=== PATIENT | female | born 1965 | race Caucasian/White ===

== ENCOUNTER 2016-08-19 08:44 | Emergency (ER) | payer BC ==
[~2016-08-19] VITALS: Ht 157.5 cm; Wt 66.3 kg
[2016-08-19 08:46] VITALS: TEMP 36.3; Ht 157.5 cm; Wt 66.3 kg
[2016-08-19] MEDS ORDERED: ONDANSETRON INJ 2 MG/ML 2 ML VIAL IV STA (08:57)
[2016-08-19] MEDS ORDERED: SODIUM CHLORIDE 0.9% 1000ML 1,000 ML IV ONE (09:00)
[2016-08-19] MEDS ORDERED: ACETAMINOPHEN IV 100 ML IV ONE (09:00)
[2016-08-19 09:10] LABS: BASO % 0.2 %; BASO ABS # 0.02 K/uL (0-0.2); COMPLETE YES; HEMATOCRIT 39.3 % (37-47); IG% 0.4 %; LYMPH % 17.6 %; LYMPH ABS # 1.95 K/uL (1.2-3.4); MEAN CELL VOLUME 89.9 fL (80-100); MEAN CORPUSCULAR HEMOGLOBIN 30.7 pg (25-34); MEAN CORPUSCULAR HGB CONC 34.1 g/dl (32-36); MEAN PLATELET VOLUME 10.5 fL (7.4-10.4); MONO % 6.2 %; NEUT % 75.6 %; PLATELET COUNT 310 K/uL (130-400); RED BLOOD COUNT 4.37 M/uL (4.2-5.4); WHITE BLOOD COUNT 11.05 K/uL (4.8-10.8)
[2016-08-19] MEDS: MoRPHine SULFATE 4 MG/ML 1 ML CARP\\VIAL IV PRN ×2 (09:13→10:40)
[2016-08-19] MEDS ORDERED: MULT-506 PO (09:16)
[2016-08-19 09:31] LABS: BUN/CREATININE RATIO 19.6 (10-20); CALCIUM 9.3 mg/dl (8.5-10.1); CREATININE 0.85 mg/dl (0.60-1.20); POTASSIUM 3.9 mmol/L (3.5-5.1)
[2016-08-19 09:33] LABS: ALB/GLOB RATIO 1.1 (0.9-2)
--- NOTE | 2016-08-19 09:51 | DIAGNOSTIC IMAGING REPORT ---
ABDOMEN AND PELVIS CT WITHOUT CONTRAST CT DOSE: 868.81 mGycm HISTORY: Flank pain Right side flank pain TECHNIQUE: Multiaxial CT images of the abdomen and pelvis were performed without the use of intravenous and oral contrast according to the standard department stone protocol. COMPARISON STUDY: None. FINDINGS: Lung bases are clear. Liver spleen and pancreas are unremarkable. Left kidney shows several punctate nonobstructing calcifications. Right kidney shows a 6.5 mm nonobstructing calcification at its mid pole. There is mild right hydroureteronephrosis with evidence for a 3 mm obstructing calculus of the mid right ureter. Bowel pattern is nonobstructive. There are scattered colonic diverticuli with no evidence for diverticulitis. The uterus is bulky in appearance probably representing fibroid involvement. IMPRESSION: 1. 3 mm obstructing calculus mid right ureter. 2. Several additional nonobstructing bilateral renal calcifications. 3. Nonobstructive bowel pattern. 4. Normal appendix. Electronically signed by: Malvin Gomez M.D. 08/19/2016 9:50 AM Dictated Date/Time: 08/19/2016 9:31 AM
[2016-08-19] MEDS ORDERED: OXYC1TAB3 PO (10:25)
[2016-08-19] MEDS ORDERED: TAMS0.4C38 PO (10:25)
[2016-08-19] MEDS ORDERED: ONDA4TAB10 SL (10:25)
[2016-08-19 10:41] VITALS: BP 103/72; PULSE 72; O2SAT 99
--- NOTE | 2016-08-19 10:43 | EMERGENCY ROOM VISIT NOTE ---
History First contact with patient: 08:50 Chief Complaint: FLANK PAIN Stated Complaint: SEVERE BACK PAIN, VOMITING History of Present Illness The patient is a 51 year old female who presents to the Emergency Room with complaints of right-sided back pain that has been significant worsening over the past 12 hours. The patient states that she felt a dull ache in her right side back when she awoke yesterday. The patient was able to go to work and did not have significant difficulty. She states that last night her pain started to increase in severity, and this morning she now rates it a 9/10. She does have episodes of colicky pain, and with one of these episodes she did have emesis. The patient has not had fever or chills. No chest pain or shortness of breath. Her pain does radiate to her abdomen now. The patient does not have injury or trauma to explain her symptoms. No increase in activity. She considers herself otherwise usually healthy and has not taken anything at home for her symptoms. Review of Systems More than 10 systems were reviewed and otherwise negative with the exception of history of present illness. Past Medical/Surgical History No chronic medical disease Family History No pertinent family history Social History Smoking Status: Never Smoker Housing Status: lives with family Occupation Status: employed Current/Historical Medications Scheduled Multivitamin (Multivitamin), 1 TAB PO DAILY Ondasetron Odt (Zofran Odt), 4 MG SL Q6H Oxycodone Immediate Rel Tab (Roxicodone Ir), 1-2 TAB PO Q4H Tamsulosin Hcl (Flomax), 0.4 MG PO DAILY Allergies Coded Allergies: Penicillins (Verified Allergy, Intermediate, 08/19/16) ALLERGY IS RASH Physical Exam Vital Signs Date Time Temp Pulse Resp B/P Pulse Ox O2 Delivery O2 Flow Rate FiO2 08/19/16 09:36 64 16 114/79 95 Room Air 08/19/16 08:46 36.3 66 20 128/80 100 Room Air Pain Rating (0-10): 2.0 Physical Exam VITALS: Vitals are noted on the nurse's note and reviewed by myself. Vital signs stable. GENERAL: Well-developed, well-nourished, white female who appears in moderate to severe discomfort secondary to her stated complaint. She is very uncomfortable in her emergency department bed. HEAD: Normocephalic atraumatic. NECK: Supple without nuchal rigidity. No lymphadenopathy. No thyromegaly. Cervical spine is nontender. HEART: Regular rate and rhythm without murmurs gallops or rubs. LUNGS: Clear to auscultation bilaterally without wheezes, rales or rhonchi. No retractions or accessory muscle use. ABDOMEN: Positive normal bowel sounds x 4. Soft, nontender, without masses or organomegaly. No guarding or rebound tenderness. No CVA tenderness. MUSCULOSKELETAL: No muscle atrophy, erythema, or edema noted. Full range of motion without joint tenderness in all extremities. No reproducible tenderness throughout the spine. Medical Decision & Procedures ER Provider Diagnostic Interpretation: ABDOMEN AND PELVIS CT WITHOUT CONTRAST CT DOSE: 868.81 mGycm HISTORY: Flank pain Right side flank pain TECHNIQUE: Multiaxial CT images of the abdomen and pelvis were performed without the use of intravenous and oral contrast according to the standard department stone protocol. COMPARISON STUDY: None. FINDINGS: Lung bases are clear. Liver spleen and pancreas are unremarkable. Left kidney shows several punctate nonobstructing calcifications. Right kidney shows a 6.5 mm nonobstructing calcification at its mid pole. There is mild right hydroureteronephrosis with evidence for a 3 mm obstructing calculus of the mid right ureter. Bowel pattern is nonobstructive. There are scattered colonic diverticuli with no evidence for diverticulitis. The uterus is bulky in appearance probably representing fibroid involvement. IMPRESSION: 1. 3 mm obstructing calculus mid right ureter. 2. Several additional nonobstructing bilateral renal calcifications. 3. Nonobstructive bowel pattern. 4. Normal appendix. Laboratory Results 08/19/16 09:00 Red Blood Count 4.37, Mean Corpuscular Volume 89.9, Mean Corpuscular Hemoglobin 30.7, Mean Corpuscular Hemoglobin Concent 34.1, Mean Platelet Volume 10.5, Neutrophils (%) (Auto) 75.6, Lymphocytes (%) (Auto) 17.6, Monocytes (%) (Auto) 6.2, Eosinophils (%) (Auto) 0.0, Basophils (%) (Auto) 0.2, Neutrophils # (Auto) 8.35, Lymphocytes # (Auto) 1.95, Monocytes # (Auto) 0.69, Eosinophils # (Auto) 0.00, Basophils # (Auto) 0.02 08/19/16 09:00 Test 08/19/16 09:00 White Blood Count 11.05 K/uL (4.8-10.8) Red Blood Count 4.37 M/uL (4.2-5.4) Hemoglobin 13.4 g/dL (12.0-16.0) Hematocrit 39.3 % (37-47) Mean Corpuscular Volume 89.9 fL (80-100) Mean Corpuscular Hemoglobin 30.7 pg (25-34) Mean Corpuscular Hemoglobin Concent 34.1 g/dl (32-36) Platelet Count 310 K/uL (130-400) Mean Platelet Volume 10.5 fL (7.4-10.4) Neutrophils (%) (Auto) 75.6 % Lymphocytes (%) (Auto) 17.6 % Monocytes (%) (Auto) 6.2 % Eosinophils (%) (Auto) 0.0 % Basophils (%) (Auto) 0.2 % Neutrophils # (Auto) 8.35 K/uL (1.4-6.5) Lymphocytes # (Auto) 1.95 K/uL (1.2-3.4) Monocytes # (Auto) 0.69 K/uL (0.11-0.59) Eosinophils # (Auto) 0.00 K/uL (0-0.5) Basophils # (Auto) 0.02 K/uL (0-0.2) RDW Standard Deviation 43.3 fL (36.4-46.3) RDW Coefficient of Variation 13.1 % (11.5-14.5) Immature Granulocyte % (Auto) 0.4 % Immature Granulocyte # (Auto) 0.04 K/uL (0.00-0.02) Anion Gap 9.0 mmol/L (3-11) Est Creatinine Clear Calc Drug Dose 71.5 ml/min Estimated GFR () 93.3 Estimated GFR (Non- 80.5 BUN/Creatinine Ratio 19.6 (10-20) Calcium Level 9.3 mg/dl (8.5-10.1) Total Bilirubin 0.6 mg/dl (0.2-1) Aspartate Amino Transf (AST/SGOT) 20 U/L (15-37) Alanine Aminotransferase (ALT/SGPT) 20 U/L (12-78) Alkaline Phosphatase 96 U/L (45-117) Total Protein 7.5 gm/dl (6.4-8.2) Albumin 3.9 gm/dl (3.4-5.0) Globulin 3.6 gm/dl (2.5-4.0) Albumin/Globulin Ratio 1.1 (0.9-2) Lipase 157 U/L (73-393) Medications Administered Medications (Trade) Dose Ordered Sig/Gwendolyn Route Start Time Stop Time Status Last Admin Dose Admin Sodium Chloride (Nss 1000ml) 1,000 ml @ 999 mls/hr Q1H1M ONCE IV 08/19/16 09:00 08/19/16 10:00 DC 08/19/16 09:13 999 MLS/HR Morphine Sulfate (MoRPHine SULFATE INJ) 4 mg Q30M PRN IV 08/19/16 09:00 09/02/16 08:59 08/19/16 09:13 4 MG Ondansetron HCl 4 mg 4 mg NOW STAT IV 08/19/16 08:57 08/19/16 08:59 DC 08/19/16 09:13 4 MG Acetaminophen (Ofirmev Iv) 100 ml @ 400 mls/hr NOW ONCE IV 08/19/16 09:00 08/19/16 09:14 DC 08/19/16 09:13 400 MLS/HR ED Course Physical exam and history were performed. Nursing notes and EMR were reviewed. Patient appears to have right sided back pain radiating into her groin. Clinically she appears quite uncomfortable on exam. IV access was established and labs were obtained. The patient was hydrated with normal saline given IV morphine and IV Zofran for comfort. Out of concern for stone or other abdominal process as did elect from CT scan. The patient blood work is as above and was reviewed. She has a very minimally elevated white blood cell count of 11,000. She does not have significant anemia or gross electrolyte imbalance. Lipase and transaminases are nondiagnostic. CT scan does show a 3 mm mid ureteral calculi consistent with the patient's discomfort. I reevaluated the patient several times throughout her stay. After hydration, pain medication, and antiemetics she was much more comfortable and was able to rest in her ER bed. Overall the patient appears stable for discharge home. She will be given a urine strainer as well as home medications of oxycodone, Zofran, and Flomax. I will give her a note for several days off work and information to follow with urology. The patient was thoroughly asked to return if she had worsening symptoms or did not do well at home. The patient was pleased with this and voiced understanding. She was discharged home under the care of her and rated her discomfort a 2/10 at the time of departure. The chart was completed utilizing [employer] Speech Voice Recognition Software. Grammatical errors, random word insertions, pronoun errors, and incomplete sentences are an occasional consequence of this system due to software limitations, ambient noise, and hardware issues. Any formal questions or concerns about the content, text, or information contained within the body of this dictation should be directly addressed to the provider for clarification. . Medical Decision Differential diagnosis: Etiologies such as renal colic, appendicitis, diverticulitis, mesenteric ischemia, aortic pathology, infections, inflammatory bowel disease, PUD, biliary pathology, UTI, as well as others were entertained. Impression Primary Impression: Right ureteral calculus Departure Information Dispostion Home / Self-Care Condition GOOD Prescriptions Ondasetron Odt (ZOFRAN ODT) 4 Mg Tab 4 MG SL Q6H for Nausea, #12 TAB Prov: Eddie Johns PA-C 08/19/16 Tamsulosin Hcl (FLOMAX) 0.4 Mg Cap 0.4 MG PO DAILY for 7 Days, #7 CAP Prov: Eddie Johns PA-C 08/19/16 Oxycodone Immediate Rel Tab (ROXICODONE IR) 5 Mg Tab 1-2 TAB PO Q4H for Pain, #30 TAB Prov: Eddie Johns PA-C 08/19/16 Referrals Jonathan Rosales M.D. Forms HOME CARE DOCUMENTATION FORM, Work Instructions, Additional Instructions: Patient was seen and evaluated today in the emergency department fo medical care. Return to work on 08/23/2016. Please excuse. IMPORTANT VISIT INFORMATION Patient Instructions Kidney Stones - [facility], [facility] Additional Instructions You were seen and evaluated today on an emergency basis only. This is not a substitute for, or an effort to provide, complete comprehensive medical care. It is not possible to recognize and treat all injuries or illnesses in a single emergency department visit. For this reason it is recommended that you followup with Urology, Dr. Rosales's office, by telephone today to make a follow-up appointment this week. Let them know you were seen in the emergency department to help facilitate care. For baseline pain relief you may alternate ibuprofen and acetaminophen every 4 hours for pain control. Take 600 mg ibuprofen (Advil) and then 4 hours later take 1000 mg acetaminophen (Tylenol). Do not take more than 3000 mg acetaminophen in a single day. Oxycodone (OxyIR) 5mg: Take ONE or TWO pills every FOUR to SIX hours for breakthrough pain. Avoid alcohol, operating machinery or dangerous equipment, working on ladders or roofs, DRIVING, or situations where being under the influence may be dangerous. It is recommended to use an [id number] stool softener such as Colace, 100mg twice daily while taking this medication to avoid constipation. Zofran 1 tablet every 6 hrs as needed for nausea. Take Flomax once daily Strain your urine. Drink plenty of fluids and remain well hydrated. You are welcome to return to the emergency department anytime with new, worsening, or concerning symptoms. Work Instructions Additional Work Instructions: Patient was seen and evaluated today in the emergency department for medical care. Return to work on 08/23/2016. Please excuse.
== END 2016-08-19 11:38 | disposition home or self-care (01) ==
LOC: C.EDB 08:45 → C.EDA 11:38
DX: N20.1 Calculus of ureter (principal); Z88.0 Allergy status to penicillin

== ENCOUNTER 2016-08-20 14:07 | Emergency (ER) | payer BC ==
[~2016-08-20] VITALS: Ht 157.5 cm; Wt 66.6 kg
[~2016-08-20 14:07] MED LIST: MULT-506 PO; ONDA4TAB10 SL; OXYC1TAB3 PO; TAMS0.4C38 PO
[2016-08-20 14:13] VITALS: TEMP 36.9; Ht 157.5 cm; Wt 66.6 kg
[2016-08-20] MEDS ORDERED: ONDANSETRON INJ 2 MG/ML 2 ML VIAL IV STA ×2 (14:31→18:07)
[2016-08-20] MEDS ORDERED: SODIUM CHLORIDE 0.9% 500ML 500 ML IV STA (14:31)
[2016-08-20] MEDS ORDERED: KETOROLAC TROMETHAMINE 30 MG/ML VIAL IV STA (14:31)
[2016-08-20] MEDS ORDERED: HYDROmorphone INJ 1 MG/ML SYR IV STA (14:31)
[2016-08-20 16:16] LABS: BASO % 0.1 %; BASO ABS # 0.01 K/uL (0-0.2); COMPLETE YES; HEMATOCRIT 35.2 % (37-47); IG% 0.2 %; LYMPH % 4.7 %; MEAN CELL VOLUME 89.8 fL (80-100); MEAN CORPUSCULAR HEMOGLOBIN 30.4 pg (25-34); MEAN CORPUSCULAR HGB CONC 33.8 g/dl (32-36); MEAN PLATELET VOLUME 10.2 fL (7.4-10.4); MONO % 3.7 %; NEUT % 91.3 %; PLATELET COUNT 233 K/uL (130-400); RED BLOOD COUNT 3.92 M/uL (4.2-5.4); WHITE BLOOD COUNT 15.05 K/uL (4.8-10.8)
--- NOTE | 2016-08-20 16:35 | DIAGNOSTIC IMAGING REPORT ---
KUB CLINICAL HISTORY: r flank pain w/ known stone pain COMPARISON STUDY: CT study dated 08/19/2016 FINDINGS: Several renal cortical calcifications. Vertebral soft tissues are poorly seen overlying bowel content. Several pelvic vascular calcifications. IMPRESSION: Limited study due to overlying fecal material. Calcifications within the kidneys is similar to the CT exam. Electronically signed by: Malvin Gomez M.D. 08/20/2016 4:34 PM Dictated Date/Time: 08/20/2016 4:33 PM
[2016-08-20 16:41] LABS: BUN/CREATININE RATIO 18.9 (10-20); CALCIUM 8.2 mg/dl (8.5-10.1); CREATININE 0.93 mg/dl (0.60-1.20); POTASSIUM 4.3 mmol/L (3.5-5.1)
--- NOTE | 2016-08-20 16:56 | DIAGNOSTIC IMAGING REPORT ---
RENAL ULTRASOUND HISTORY: Flank pain r flank pain w/ known stone COMPARISON: CT abdomen and pelvis dated 08/19/2016 FINDINGS: Right kidney: Moderate right hydronephrosis unchanged prior CT exam. Maximum dimension 11.9 cm. Left kidney: Maximum dimension 10.4 cm. No evidence for hydronephrosis. Normal corticomedullary differentiation and cortical thickness. Bladder: No bladder wall thickening. The bilateral ureteral jets were identified. IMPRESSION: Moderate right renal hydroureteronephrosis unchanged compared to the patient's prior CT exam. Otherwise negative renal ultrasound. Electronically signed by: Malvin Gomez M.D. 08/20/2016 4:55 PM Dictated Date/Time: 08/20/2016 4:53 PM
[2016-08-20 18:02] LABS: URINE APPEARANCE CLEAR (CLEAR); URINE BILIRUBIN NEG (NEG); URINE COLOR YELLOW; URINE EPITHELIAL CELL AUTO >30 /lpf (0-5); URINE NITRITE NEG (NEG); URINE SPECIFIC GRAVITY 1.025 (1.000-1.030); UROBILINOGEN NEG (NEG); ZZUR CULT IF INDIC CLEAN CATCH NO
[2016-08-20 18:04] LABS: MANUAL MICROSCOPIC REQUIRED? NO; REVIEW REQ? NO
[2016-08-20] MEDS ORDERED: HYDROmorphone INJ 0.5 MG/0.5 ML SYR IV STA (18:07)
[2016-08-20 18:08] LABS: PREG INTERNAL NEGATIVE QC NEG CLEAR BACKGROUND; PREG INTERNAL POSITIVE QC POS CONTROL LINE
[2016-08-20 19:08] VITALS: BP 122/78; PULSE 71; O2SAT 98
--- NOTE | 2016-08-20 21:43 | EMERGENCY ROOM VISIT NOTE ---
History Report prepared by Claudia: Antonieta Sterling Under the Supervision of: Dr. Kailash Whitley D.O. First contact with patient: 14:17 Chief Complaint: KIDNEY STONE Stated Complaint: KIDNEY STONE History of Present Illness The patient is a 51 year old female who presents to the Emergency Room with complaints of persistent, worsened right flank pain that began yesterday. She currently rates her discomfort as a 5/10 in severity. The patient states that she was evaluated in the emergency department yesterday and was diagnosed with a 3 mm kidney stone. She denies any previous history of kidney stones. The patient notes a surgical history two sections. She additionally associates nausea and vomiting with her symptoms today. The patient notes radiating pain to her right lower abdomen. Per nursing staff, the patient was discharged with Oxy-IR and Flomax for her symptoms. Pt denies headache, change in vision, fevers, chest pain, shortness of breath, diarrhea, pain with urination, and melena. She notes that she was only taking 5 mg worth of OxyIR every 4 hours. Source of History: patient, nursing staff Onset: yesterday Position: other (right flank) Symptom Intensity: 5/10 Timing: worsening, other (persistent) Associated Symptoms: + abdominal pain, + nausea, + vomiting Review of Systems See HPI for pertinent positives & negatives. A total of 10 systems reviewed and were otherwise negative. Past Medical & Surgical Medical Problems: (1) No active medical problems Family History No pertinent family history stated. Social History Smoking Status: Never Smoker Marital Status: Housing Status: lives with family Occupation Status: employed Current/Historical Medications Scheduled Multivitamin (Multivitamin), 1 TAB PO DAILY Ondasetron Odt (Zofran Odt), 4 MG SL Q6H Oxycodone Immediate Rel Tab (Roxicodone Ir), 1-2 TAB PO Q4H Tamsulosin Hcl (Flomax), 0.4 MG PO DAILY Allergies Coded Allergies: Penicillins (Verified Allergy, Intermediate, 08/20/16) ALLERGY IS RASH Physical Exam Vital Signs Date Time Temp Pulse Resp B/P Pulse Ox O2 Delivery O2 Flow Rate FiO2 08/20/16 19:08 71 20 122/78 98 Room Air 08/20/16 17:13 65 20 127/71 97 Room Air 08/20/16 14:13 36.9 66 18 131/75 100 Room Air Physical Exam GENERAL: Sitting up on edge of bed, holding right flank in mild distress, alert , well nourished, non-toxic EYE EXAM: normal conjunctiva. OROPHARYNX: no exudate, no erythema, lips, buccal mucosa, and tongue normal and mucous membranes are moist NECK: supple, no nuchal rigidity, no adenopathy, non-tender LUNGS: Clear to auscultation. Normal chest wall mechanics HEART: no murmurs, S1 normal and S2 normal ABDOMEN: abdomen soft, non-tender, normo-active bowel sounds, no masses, no rebound or guarding. BACK: Back is symmetrical on inspection and there is no deformity, no midline tenderness, no CVA tenderness. SKIN: no rashes and no bruising UPPER EXTREMITIES: upper extremities are grossly normal. LOWER EXTREMITIES: No pitting edema. NEURO EXAM: Normal sensorium, cranial nerves II-XII grossly intact, normal speech, no gross weakness of arms, no gross weakness of legs. Medical Decision & Procedures ER Provider Diagnostic Interpretation: Xray results per the radiologist and my interpretation. Other results have been interpreted by the radiologist and reviewed by me. RENAL ULTRASOUND HISTORY: Flank pain r flank pain w/ known stone COMPARISON: CT abdomen and pelvis dated 08/19/2016 FINDINGS: Right kidney: Moderate right hydronephrosis unchanged prior CT exam. Maximum dimension 11.9 cm. Left kidney: Maximum dimension 10.4 cm. No evidence for hydronephrosis. Normal corticomedullary differentiation and cortical thickness. Bladder: No bladder wall thickening. The bilateral ureteral jets were identified. IMPRESSION: Moderate right renal hydroureteronephrosis unchanged compared to the patient's prior CT exam. Otherwise negative renal ultrasound. Electronically signed by: Malvin Gomez M.D. 08/20/2016 4:55 PM Dictated Date/Time: 08/20/2016 4:53 PM KUB CLINICAL HISTORY: r flank pain w/ known stone pain COMPARISON STUDY: CT study dated 08/19/2016 FINDINGS: Several renal cortical calcifications. Vertebral soft tissues are poorly seen overlying bowel content. Several pelvic vascular calcifications. IMPRESSION: Limited study due to overlying fecal material. Calcifications within the kidneys is similar to the CT exam. Electronically signed by: Malvin Gomez M.D. 08/20/2016 4:34 PM Dictated Date/Time: 08/20/2016 4:33 PM Laboratory Results 08/20/16 16:08 Red Blood Count 3.92, Mean Corpuscular Volume 89.8, Mean Corpuscular Hemoglobin 30.4, Mean Corpuscular Hemoglobin Concent 33.8, Mean Platelet Volume 10.2, Neutrophils (%) (Auto) 91.3, Lymphocytes (%) (Auto) 4.7, Monocytes (%) (Auto) 3.7, Eosinophils (%) (Auto) 0.0, Basophils (%) (Auto) 0.1, Neutrophils # (Auto) 13.76, Lymphocytes # (Auto) 0.70, Monocytes # (Auto) 0.55, Eosinophils # (Auto) 0.00, Basophils # (Auto) 0.01 08/20/16 16:08 Test 08/20/16 16:08 08/20/16 17:40 White Blood Count 15.05 K/uL (4.8-10.8) Red Blood Count 3.92 M/uL (4.2-5.4) Hemoglobin 11.9 g/dL (12.0-16.0) Hematocrit 35.2 % (37-47) Mean Corpuscular Volume 89.8 fL (80-100) Mean Corpuscular Hemoglobin 30.4 pg (25-34) Mean Corpuscular Hemoglobin Concent 33.8 g/dl (32-36) Platelet Count 233 K/uL (130-400) Mean Platelet Volume 10.2 fL (7.4-10.4) Neutrophils (%) (Auto) 91.3 % Lymphocytes (%) (Auto) 4.7 % Monocytes (%) (Auto) 3.7 % Eosinophils (%) (Auto) 0.0 % Basophils (%) (Auto) 0.1 % Neutrophils # (Auto) 13.76 K/uL (1.4-6.5) Lymphocytes # (Auto) 0.70 K/uL (1.2-3.4) Monocytes # (Auto) 0.55 K/uL (0.11-0.59) Eosinophils # (Auto) 0.00 K/uL (0-0.5) Basophils # (Auto) 0.01 K/uL (0-0.2) RDW Standard Deviation 43.3 fL (36.4-46.3) RDW Coefficient of Variation 13.3 % (11.5-14.5) Immature Granulocyte % (Auto) 0.2 % Immature Granulocyte # (Auto) 0.03 K/uL (0.00-0.02) Anion Gap 8.0 mmol/L (3-11) Est Creatinine Clear Calc Drug Dose 65.5 ml/min Estimated GFR () 83.6 Estimated GFR (Non- 72.2 BUN/Creatinine Ratio 18.9 (10-20) Calcium Level 8.2 mg/dl (8.5-10.1) Total Bilirubin 0.6 mg/dl (0.2-1) Direct Bilirubin 0.1 mg/dl (0-0.2) Aspartate Amino Transf (AST/SGOT) 14 U/L (15-37) Alanine Aminotransferase (ALT/SGPT) 16 U/L (12-78) Alkaline Phosphatase 85 U/L (45-117) Total Protein 6.4 gm/dl (6.4-8.2) Albumin 3.5 gm/dl (3.4-5.0) Lipase 148 U/L (73-393) Urine Color YELLOW Urine Appearance CLEAR (CLEAR) Urine pH 5.0 (4.5-7.5) Urine Specific [place] 1.025 (1.000-1.030) Urine Protein NEG (NEG) Urine Glucose (UA) NEG (NEG) Urine Ketones 3+ (NEG) Urine Occult Blood NEG (NEG) Urine Nitrite NEG (NEG) Urine Bilirubin NEG (NEG) Urine Urobilinogen NEG (NEG) Urine Leukocyte Esterase NEG (NEG) Urine WBC (Auto) 1-5 /hpf (0-5) Urine RBC (Auto) 0-4 /hpf (0-4) Urine Hyaline Casts (Auto) 1-5 /lpf (0-5) Urine Epithelial Cells (Auto) >30 /lpf (0-5) Urine Bacteria (Auto) NEG (NEG) Urine Test NEG (NEG) Laboratory results per my review. Medications Administered Medications (Trade) Dose Ordered Sig/Gwendolyn Route Start Time Stop Time Status Last Admin Dose Admin Ketorolac Tromethamine (Toradol Inj) 30 mg NOW STAT IV 08/20/16 14:31 08/20/16 14:33 DC 08/20/16 14:45 30 MG Hydromorphone HCl (Dilaudid Inj) 1 mg NOW STAT IV 08/20/16 14:31 08/20/16 14:33 DC 08/20/16 14:45 1 MG Ondansetron HCl 4 mg 4 mg NOW STAT IV 08/20/16 14:31 08/20/16 14:33 DC 08/20/16 14:44 4 MG Sodium Chloride (Nss 500ml) 500 ml @ 999 mls/hr Q31M STAT IV 08/20/16 14:31 08/20/16 15:01 DC 08/20/16 14:45 999 MLS/HR Hydromorphone HCl (Dilaudid Inj) 0.5 mg NOW STAT IV 08/20/16 18:07 08/20/16 18:18 DC 08/20/16 18:30 0.5 MG Ondansetron HCl (Zofran Inj) 4 mg NOW STAT IV 08/20/16 18:07 08/20/16 18:18 DC 08/20/16 18:30 4 MG ED Course ED COURSE: Vital signs were reviewed and showed normal vitals The patients medical record was reviewed The above diagnostic studies were performed and reviewed. ED treatments and interventions as stated above. 1420: The patient was evaluated in room A11B. A complete history and physical examination was performed. 1431: Ordered Sodium Chloride 500 ml @ 999 mls/hr IV, Zofran Inj 4 mg IV, Dilaudid Inj 1 mg IV, Toradol Inj 30 mg IV. 1734: I reevaluated the patient and she is having increased pain. 1807: Ordered Zofran Inj 4 mg IV, Dilaudid Inj 0.5 mg IV. 1816: Upon reevaluation, the patient is resting comfortably.I discussed my findings with the patient and she understands and agrees with the treatment plan. Based on the patients age, coexisting illnesses, exam and lab findings the decision to treat as an outpatient was made. The patient remained stable while under my care. The patient appeared well at the time of discharge. Medical Decision Differential diagnoses includes but is not limited to gastritis, peptic ulcer disease, GERD, gallbladder disease, pancreatitis, small bowel obstruction, acute coronary syndrome, pericarditis, ischemic bowel, irritable bowel disease, irritable bowel syndrome, appendicitis, diverticulitis, malignancy, hernia, urinary tract infection, torsion, /ectopic (if female), perforation, trauma, infectious. Patient is a 51-year-old female who presents the ER for severe right flank pain that is worsening since just rate. History she was diagnosed with a 3 mm midureteral stone. She denies any fevers. Labs are remarkable for a leukocytosis of 15,000, along with an unremarkable BMP, LFTs, bilirubin and lipase. UA was clean. was negative. Patient was given 2 doses of Dilaudid and Zofran. She felt significantly better. Patient was discharged instructed take 5-10 mg of OxyIR every 4 hours along with Zofran 4 mg every 6 hours as needed. She will continue her Flomax. Discussed with Pt concerning signs and symptoms to watch out for. Pt was instructed to follow up with their PCP and discussed with the patient their option to return to the ED at anytime for persistent or worsening symptoms. The appropriate anticipatory guidance and out-patient management, including indications for return to the emergency department, were explained at length to the patient and understood. Impression Primary Impression: Renal colic on right side Scribe Attestation The scribe's documentation has been prepared under my direction and personally reviewed by me in its entirety. I confirm that the note above accurately reflects all work, treatment, procedures, and medical decision making performed by me. Departure Information Dispostion Home / Self-Care Referrals Leodan Guzman M.D. (PCP) Forms HOME CARE DOCUMENTATION FORM, IMPORTANT VISIT INFORMATION Patient Instructions ED Stone Renal W Colic, [facility] Additional Instructions Please follow up with your primary care doctor with in the next 24 hours. Any worsening of your symptoms, please return to the ED immediately. This includes fevers greater than 100.4, worsening pain, persistent nausea vomiting, unable to eat or drink, or any other concerning signs or symptoms from your standpoint. Please take your narcotics/OxyIR 1-2 tabs every 4 hours as needed for pain. You were given medications during this visit that will inhibit your ability to drive, operate machinery and work. Please do NOT drive, operate machinery or work for the next 12hrs. You were also given a prescription for a narcotic/Oxy IR. While taking this medication you should also not drive, operate machinery and or work. Please take Flomax as previously prescribed.
== END 2016-08-20 19:11 | disposition home or self-care (01) ==
LOC: C.EDB 14:09 → C.EDA 19:11
DX: N23 Unspecified renal colic (principal); N20.0 Calculus of kidney; N13.30 Unspecified hydronephrosis

== ENCOUNTER → 2016-09-04 | Outpatient (CLI) | payer BC ==
[~2016-09-04] MED LIST changes: -TAMS0.4C38 PO
--- NOTE | 2016-09-04 16:29 | MAMMOGRAPHY REPORT ---
BILATERAL DIGITAL SCREENING MAMMOGRAM TOMOSYNTHESIS WITH CAD: 09/04/2016 CLINICAL HISTORY: Routine screening. Patient has no complaints. TECHNIQUE: Breast tomosynthesis in addition to standard 2D mammography was performed. Current study was also evaluated with a Computer Aided Detection (CAD) system. COMPARISON: Comparison is made to exams dated: 08/24/2015 mammogram, 08/07/2014 mammogram, 08/04/2013 m ammogram, 08/02/2012 mammogram, 07/27/2012 mammogram, and 08/02/2012 ultrasound - [facility]. BREAST COMPOSITION: The tissue of both breasts is heterogeneously dense, which may obscure small ma sses. FINDINGS: No suspicious masses, calcifications, or areas of architectural distortion are noted in e ither breast. There has been no significant interval change compared to prior exams. Asymmetry seen within the right lateral posterior breast on the cc view is similar to prior exams including the 13 03 and 2011 exams. Bilateral benign-appearing calcifications are also stable. IMPRESSION: ACR BI-RADS CATEGORY 2: BENIGN There is no mammographic evidence of malignancy. A 1 year screening mammogram is recommended. The p atient will receive written notification of the results. Approximately 10% of breast cancers are not detected with mammography. A negative mammographic repor t should not delay biopsy if a clinically suggestive mass is present. Iva Jackson M.D. /:09/04/2016 14:52:40 Chemical Engineering Teacher: Heidi AWADR, M, [facility] letter sent: Normal 1/2 BI-RADS Code: ACR BI-RADS Category 2: Benign
== END | disposition home or self-care (01) ==
LOC: C.MAMM 13:55
PROVIDERS: ATTEND Physician Assistant
DX: Z12.31 Encounter for screening mammogram for malignant neoplasm of breast (principal)

== ENCOUNTER → 2017-05-11 | Outpatient (CLI) | payer BC ==
[~2017-05-11] MED LIST changes: -ONDA4TAB10 SL; -OXYC1TAB3 PO
== END | disposition home or self-care (01) ==
LOC: C.PAPS 11:06
PROVIDERS: ATTEND Obstetrics & Gynecology
DX: Z01.419 Encounter for gynecological examination (general) (routine) without abnormal findings (principal)

== ENCOUNTER → 2017-09-09 | Outpatient (CLI) | payer OTHER ==
--- NOTE | 2017-09-09 15:13 | MAMMOGRAPHY REPORT ---
BILATERAL DIGITAL SCREENING MAMMOGRAM TOMOSYNTHESIS WITH CAD: 09/09/2017 CLINICAL HISTORY: Routine screening. Patient has no complaints. TECHNIQUE: Breast tomosynthesis in addition to standard 2D mammography was performed. Current study was also evaluated with a Computer Aided Detection (CAD) system. COMPARISON: Comparison is made to exams dated: 09/04/2016 mammogram, 08/24/2015 mammogram, 08/07/2014 ma mmogram, 08/04/2013 mammogram, 08/02/2012 mammogram, and 07/27/2012 mammogram - [facility] ter. BREAST COMPOSITION: The tissue of both breasts is heterogeneously dense, which may obscure small mas ses. FINDINGS: No suspicious masses, calcifications, or areas of architectural distortion are noted in ei ther breast. There has been no significant interval change compared to prior exams. IMPRESSION: ACR BI-RADS CATEGORY 1: NEGATIVE There is no mammographic evidence of malignancy. A 1 year screening mammogram is recommended. The pa tient will receive written notification of the results. Approximately 10% of breast cancers are not detected with mammography. A negative mammographic report should not delay biopsy if a clinically suggestive mass is present. Iva Jackson M.D. ah/:09/09/2017 14:53:32 Corporate Banking Officer: Bella Causey RT(Heather)([place])([place]), [facility] letter sent: Normal 1/2 BI-RADS Code: ACR BI-RADS Category 1: Negative
== END | disposition home or self-care (01) ==
LOC: C.MAMM 13:00
PROVIDERS: ATTEND Physician Assistant
DX: Z12.31 Encounter for screening mammogram for malignant neoplasm of breast (principal)